=== PATIENT | female | born 1985 | race African-American/Black ===

== ENCOUNTER 2019-07-15 15:49 | Emergency (ER) | payer OTHER ==
[2019-07-15 16:37] LABS: APPEARANCE,URINE Clear (CLEAR); BILIRUBIN,URINE Negative (NEGATIVE); COLOR,URINE Yellow (YELLOW); GLUCOSE, URINE (UA) Negative (NEGATIVE); KETONES,URINE Negative (NEGATIVE); LEUKOCYTE ESTERASE ,URINE Negative (NEGATIVE); NITRATE,URINE Negative (NEGATIVE); OCCULT BLOOD,URINE Large (NEGATIVE); PH,URINE 5.5 (5.0-8.0); PROTEIN,URINE Negative (NEGATIVE)
[2019-07-15 16:47] LABS: HCG,QUAL RESULT NEGATIVE (NEGATIVE)
[2019-07-15 16:53] LABS: BASOPHILS % (AUTO) 1.1 % (0.0-5.0); EOSINOPHILS % (AUTO) 2.3 % (0.0-8.0); HEMATOCRIT 44.1 % (36-48); LYMPHOCYTES % (AUTO) 25.9 % (21.0-51.0); MEAN CORPUSCULAR HEMOGLOBIN 32.7 pg (27.0-33.0); MEAN CORPUSCULAR HGB CONC 33.8 g/dL (32.0-36.0); MEAN CORPUSCULAR VOLUME 96.8 fL (79-99); MONOCYTES % (AUTO) 7.9 % (3.0-13.0); NEUTROPHILS % (AUTO) 62.8 % (40.0-77.0); PLATELET COUNT (AUTO) 346 K/uL (130-400); RED BLOOD CELL COUNT(AUTO) 4.56 MIL/uL (4.00-5.50); RED CELL DISTRIBUTION WIDTH 14.1 % (11.0-15.5); WHITE BLOOD COUNT (AUTO) 7.8 K/uL (4.8-10.8)
[2019-07-15 17:07] LABS: BACTERIA,URINE Few /HPF (None Seen); WBC,URINE 0-1 /HPF (0-1)
[2019-07-15 17:08] LABS: SQUAMOUS EPITHELIAL CELL,UR Rare /HPF (0-2)
== END 2019-07-15 17:45 | disposition home or self-care (01) ==
LOC: EDH 15:49
DX: O46.91 Antepartum hemorrhage, unspecified, first trimester (principal); O26.20 Pregnancy care for patient with recurrent pregnancy loss, unspecified trimester; O99.511 Diseases of the respiratory system complicating pregnancy, first trimester; Z3A.09 9 weeks gestation of pregnancy; J45.909 Unspecified asthma, uncomplicated; Z91.041 Radiographic dye allergy status; Z88.0 Allergy status to penicillin; Z72.0 Tobacco use
CPT/HCPCS: 36415; 81001; 81025; 84702; 85025; 86900; 86901

== ENCOUNTER 2019-07-16 13:00 | Emergency (ER) | payer SELFPAY ==
[2019-07-16] MEDS ORDERED: ONDANSETRON ODT 4 MG TAB ONE (13:14)
[2019-07-16] MEDS ORDERED: IBUPROFEN 800 MG TAB ONE (13:14)
[2019-07-16 13:39] LABS: BASOPHILS % (AUTO) 1.1 % (0.0-5.0); EOSINOPHILS % (AUTO) 1.7 % (0.0-8.0); HEMATOCRIT 48.3 % (36-48); LYMPHOCYTES % (AUTO) 24.4 % (21.0-51.0); MEAN CORPUSCULAR HEMOGLOBIN 32.7 pg (27.0-33.0); MEAN CORPUSCULAR HGB CONC 33.6 g/dL (32.0-36.0); MEAN CORPUSCULAR VOLUME 97.5 fL (79-99); MONOCYTES % (AUTO) 5.3 % (3.0-13.0); NEUTROPHILS % (AUTO) 67.5 % (40.0-77.0); NUCLEATED RED BLOOD CELLS 0.1 % (0.0-0.19); PLATELET COUNT (AUTO) 395 K/uL (130-400); RED BLOOD CELL COUNT(AUTO) 4.95 MIL/uL (4.00-5.50); RED CELL DISTRIBUTION WIDTH 14.2 % (11.0-15.5); WHITE BLOOD COUNT (AUTO) 8.1 K/uL (4.8-10.8)
[2019-07-16 13:49] LABS: CREATININE 0.9 mg/dL (0.5-1.5); POTASSIUM 4.4 mmol/L (3.5-5.1)
[2019-07-16 13:53] LABS: ALBUMIN 4.5 g/dL (3.5-5.0); BILIRUBIN,TOTAL 0.6 mg/dL (0.2-1.0); TOTAL PROTEIN, SERUM 9.8 g/dL (6.0-8.3)
[2019-07-16] MEDS ORDERED: TRAMADOL HCL 50 MG TABLET ONE (14:56)
== END 2019-07-16 17:15 | disposition home or self-care (01) ==
LOC: EDH 13:00
DX: N93.9 Abnormal uterine and vaginal bleeding, unspecified (principal); J45.909 Unspecified asthma, uncomplicated; Z72.0 Tobacco use; Z91.041 Radiographic dye allergy status; Z88.0 Allergy status to penicillin
CPT/HCPCS: 36415; 76856; 80053; 85025